=== PATIENT | female | born 1935 | race Caucasian/White ===

== ENCOUNTER 2019-07-05 17:32 | Inpatient (IN) | payer MEDICARE, MEDICAID ==
[~2019-07-05] VITALS: Ht 157.5 cm; Wt 55.3 kg
[2019-07-05 17:39] VITALS: BP 158/60
--- NOTE | 2019-07-05 17:39 | NUR ---
ED Nurse Note: PT CAME IN DUE TO ELEVATED BLOOD PRESSURE TODAY AND STATES LEFT EYE BLURING OF VISION AND THAT SHE SEES HALO SPOTS 2 DAYS AGO. DENIES N/V. AAO X4, AMBULATES WITH ASSISTANCE. DAUGHTER AT THE BED SIDE.
--- NOTE | 2019-07-05 18:11 | Diagnostic Imaging Report ---
Indication: Headache Technique: Continuous helical CT scanning of the head was performed utilizing automated exposure control without intravenous contrast material. Axial and coronal reconstructions were obtained. Comparison: None CT dose: Total DLP 1363.6 mGycm; CTDI vol 62.7 mGy Findings: There is no acute intracranial hemorrhage, mass effect or cortical edema. The ventricles, cisterns and sulci are prominent consistent with atrophy. Periventricular hypoattenuation is seen, a nonspecific finding. Visualized mastoid air cells and paranasal sinuses are unremarkable. No focal lesions of the bony calvarium or soft tissues of the scalp are seen. Impression: No evidence of acute intracranial hemorrhage, mass effect or cortical edema. MRI may be obtained for more sensitive evaluation as clinically indicated. Atrophy and nonspecific periventricular hypoattenuation suggestive of chronic ischemic microvascular changes. The CT scanner at [facility] is accredited by the [employer] and the scans are performed using protocols designed to limit radiation exposure to as low as reasonably achievable to attain images of sufficient resolution adequate for diagnostic evaluation.
--- NOTE | 2019-07-05 18:14 | Emergency Room Report ---
History of Present Illness General Chief Complaint: General Complaint Source: Patient Present Illness HPI Disclaimer: Please note that this report is being documented using [employer] technology. This can lead to erroneous entry secondary to incorrect interpretation by the dictating instrument. HPI: 83-year-old primarily [place]er-speaking female presents for evaluation of vision changes. Daughter is present to translate and provide additional information. States that over the past 2 days her mother has lost vision almost completely in the right eye aside from slight black floating dots. There is no history of head trauma. She has a remote history of stroke many years ago without residual deficits and is being treated for hypertension and hyperlipidemia. She is otherwise been in her usual state of health. She is sent over for evaluation by her home health aide who found her systolic pressures greater than 200 today and when she learned about the vision changes, headaches and ringing in the ear prompted urgent medical evaluation. Patient noted some mild headaches, pressure behind the right eye and a ringing in the right ear which have now resolved. Her vision has not returned. Denied any chest pain, palpitations, shortness of breath, fever, chills, vomiting or diarrhea or other changes in her health. Denies vertigo or lightheadedness. She was complaining of some tingling over the left izaguirre but denied any changes in strength and still has grossly intact sensation just notes slight numbness/ tingling. PMH: Hypertension, hyperlipidemia, prior stroke without residual deficits PSH: Abdominal tumor resection Allergies: None reported Social Hx: None reported Allergies: Coded Allergies: No Known Allergies (Verified , 11/27/09) Nursing Documentation-PMH Hx Hypertension: Yes - high cholesterol Review of Systems All Other Systems: negative except mentioned in HPI Physical Exam Vital Signs Date Time Temp Pulse Resp B/P (MAP) Pulse Ox O2 Delivery O2 Flow Rate FiO2 07/05/19 17:29 98.2 62 16 170/70 (103) 98 Room Air General: Awake and alert, no acute distress HEENT: NC/AT. EOMI. pupils are equal approximately 3 mm.. Complete loss of vision in the right eye. Loss of accommodation in the right eye. Left eye has good reactivity to light and consensual accommodation. Facial expressions are symmetrical. No facial droop. Cardiovascular: RRR. S1 and S2 normal. No murmur appreciated Resp: Normal work of breathing. No cough, wheezing or crackles appreciated Abdomen: Abdomen is soft, nondistended. Nontender Skin: Intact. No abrasions, laceration or rash over the exposed skin MSK: Normal tone and bulk. Moving all extremities. No obvious deformity. There is no drift in the upper or lower extremities bilaterally. Neuro: Awake and alert. Mentating appropriately. Facial expression symmetrical. Sensation to light touch is intact over the upper and lower extremities. Difficult to assess for dysarthria given the language barrier. No apparent slurred speech. Patient appears to have full comprehension through rn acute care. Medical Decision Making Diagnostic Impression: Primary Impression: Hypertensive urgency Additional Impressions: Vision loss Paresthesia of left leg ER Course This 83-year-old female presenting for evaluation of elevated blood pressures, 2 days of right vision loss, subjective paresthesias in lower extremity, previous headaches and ringing in the ears which have now resolved. The patient 's on examination aside from the vision loss is neurologically intact. She has gross sensation, full motor and strength. Appears to comprehend fully and is no complete complaints at this time. No longer complaining of headache, ringing or ears, blood pressure is improved prior to arrival. Differential includes was not limited to CVA, hypertensive urgency, hypertensive emergency, retinal detachment, vitreous detachment, CRAO to name a few. Will obtain a CT scan of the head, broad labs. She will require admission Laboratory Tests Test 07/05/19 18:20 07/05/19 20:35 White Blood Count 8.0 K/UL (4.8-10.8) Red Blood Count 3.72 M/UL (4.20-5.40) L Hemoglobin 11.2 G/DL (12.0-16.0) L Hematocrit 33.6 % (37.0-47.0) L Mean Corpuscular Volume 90 FL (80-99) Mean Corpuscular Hemoglobin 30.0 PG (27.0-31.0) Mean Corpuscular Hemoglobin Concent 33.2 G/DL (32.0-36.0) Red Cell Distribution Width 10.3 % (11.6-14.8) L Platelet Count 208 K/UL (150-450) Mean Platelet Volume 5.6 FL (6.5-10.1) L Neutrophils (%) (Auto) 67.8 % (45.0-75.0) Lymphocytes (%) (Auto) 23.3 % (20.0-45.0) Monocytes (%) (Auto) 5.4 % (1.0-10.0) Eosinophils (%) (Auto) 1.3 % (0.0-3.0) Basophils (%) (Auto) 2.2 % (0.0-2.0) H Prothrombin Time 10.2 SEC (9.30-11.50) Prothrombin Time INR 1.0 (0.9-1.1) PTT 25 SEC (23-33) Sodium Level 147 MMOL/L (136-145) H Potassium Level 4.0 MMOL/L (3.5-5.1) Chloride Level 109 MMOL/L (98-107) H Carbon Dioxide Level 29 MMOL/L (21-32) Anion Gap 10 mmol/L (5-15) Blood Urea Nitrogen 21 mg/dL (7-18) H Creatinine 1.0 MG/DL (0.55-1.30) Estimate Glomerular Filtration Rate mL/min (>60) Glucose Level 99 MG/DL (74-106) Calcium Level 8.9 MG/DL (8.5-10.1) Total Bilirubin 0.3 MG/DL (0.2-1.0) Aspartate Amino Transferase (AST) 20 U/L (15-37) Alanine Aminotransferase (ALT) 28 U/L (12-78) Alkaline Phosphatase 80 U/L (46-116) Troponin I 0.000 ng/mL (0.000-0.056) Total Protein 7.1 G/DL (6.4-8.2) Albumin 4.0 G/DL (3.4-5.0) Globulin 3.1 g/dL Albumin/Globulin Ratio 1.3 (1.0-2.7) Triglycerides Level 113 MG/DL (30-150) Cholesterol Level 157 MG/DL (< 200) LDL Cholesterol 81 mg/dL (<100) HDL Cholesterol 53 MG/DL (40-60) Cholesterol/HDL Ratio 3.0 (3.3-4.4) L Urine Color Pale yellow Urine Appearance Clear Urine pH 6 (4.5-8.0) Urine Specific [place] 1.005 (1.005-1.035) Urine Protein Negative (NEGATIVE) Urine Glucose (UA) Negative (NEGATIVE) Urine Ketones Negative (NEGATIVE) Urine Blood Negative (NEGATIVE) Urine Nitrite Negative (NEGATIVE) Urine Bilirubin Negative (NEGATIVE) Urine Urobilinogen Normal MG/DL (0.0-1.0) Urine Leukocyte Esterase Negative (NEGATIVE) EKG Diagnostic Results EKG Time: 18:01 Rate: normal Rhythm: NSR ST Segments: no acute changes Other Impression Sinus rhythm, normal axis, normal intervals, no ST segment changes. Q waves in V1 and V2 Rhythm Strip Diag. Results Rhythm Strip Time: 18:01 EP Interpretation: yes Rate: 60s Rhythm: NSR, no PVC's, no ectopy CT/MRI/US Diagnostic Results CT/MRI/US Diagnostic Results : Impression Preliminary Findings Only See Final Report For Complete Findings CT HEAD Without Contrast: No acute infarct, hemorrhage, mass or edema. Chronic small vessel ischemic disease and senescent changes. No acute osseous abnormality. Minimal mucosal thickening in the paranasal sinuses. Radiologist: Gaetano Malik MD Study ready at 18:06 and initial results transmitted at 18:10 Reevaluation Time: 21:00 Last Vital Signs Date Time Temp Pulse Resp B/P (MAP) Pulse Ox O2 Delivery O2 Flow Rate FiO2 07/05/19 17:29 98.2 62 16 170/70 (103) 98 Room Air Reevaluation Impression CT scan unremarkable for obvious bleed, mass or signs of acute infarct. Patient condition remains unchanged. Labs are largely within normal limits. Patient's condition is unchanged. At this point I believe she is there is a vitreous detachment, retinal detachment or other ocular pathology and require further evaluation though likely further imaging as well. Be admitted for further work-up and management of hypertension and vision loss. Admit to telemetry. Disposition: ADMITTED INPATIENT Condition: Serious Chuy Lance MD Jul 05, 2019 18:14
--- NOTE | 2019-07-05 18:15 | NUR ---
ED Nurse Note: COLLECTED BLOOD THEN SENT.
[2019-07-05 18:47] LABS: BASOPHILS % (AUTO) 2.2 % (0.0-2.0); EOSINOPHILS % (AUTO) 1.3 % (0.0-3.0); HEMATOCRIT 33.6 % (37.0-47.0); HEMOGLOBIN 11.2 G/DL (12.0-16.0); LYMPHOCYTES % (AUTO) 23.3 % (20.0-45.0); MEAN CORPUSCULAR VOLUME 90 FL (80-99); MONOCYTES % (AUTO) 5.4 % (1.0-10.0); NEUTROPHILS % (AUTO) 67.8 % (45.0-75.0); PLATELET COUNT 208 K/UL (150-450); RED BLOOD COUNT 3.72 M/UL (4.20-5.40); RED CELL DISTRIBUTION WIDTH 10.3 % (11.6-14.8)
[2019-07-05 18:59] LABS: ANION GAP 10 mmol/L (5-15); BLOOD UREA NITROGEN 21 mg/dL (7-18); CALCIUM 8.9 MG/DL (8.5-10.1); CARBON DIOXIDE 29 MMOL/L (21-32); CHLORIDE 109 MMOL/L (98-107); SODIUM 147 MMOL/L (136-145)
[2019-07-05 19:04] LABS: ALANINE AMINOTRANSFERASE 28 U/L (12-78); ALBUMIN/GLOBULIN RATIO 1.3 (1.0-2.7); ALKALINE PHOSPHATASE 80 U/L (46-116); ASPARTATE AMINO TRANSFERASE 20 U/L (15-37); BILIRUBIN,TOTAL 0.3 MG/DL (0.2-1.0); CHOLESTEROL 157 MG/DL (< 200); HDL CHOLESTEROL 53 MG/DL (40-60); TRIGLYCERIDES 113 MG/DL (30-150)
[2019-07-05] MEDS ORDERED: EPINEPHrine 1mg/1ml Amp IM ONE (19:30)
--- NOTE | 2019-07-05 19:31 | NUR ---
ED Nurse Note: ERMD at bedside.
[2019-07-05 19:40] VITALS: BP 153/65
--- NOTE | 2019-07-05 20:01 | NUR ---
HAND-OFF: Report given to DESTINEY HERRERA.
[2019-07-05] MEDS ORDERED: VITAMIN D32000 UNI3 PO (20:46)
[2019-07-05] MEDS ORDERED: LORATADINE10 M2 PO (20:46)
[2019-07-05] MEDS ORDERED: CRESTOR40 MG ORAL (20:46)
[2019-07-05] MEDS ORDERED: BENICAR40 MG ORAL (20:46)
[2019-07-05] MEDS ORDERED: OYSTER SHELL C500 MG PO (20:46)
--- NOTE | 2019-07-05 20:48 | NUR ---
ED Nurse Note: Report given to JAVIER Babb in tele.
--- NOTE | 2019-07-05 21:15 | NUR ---
ED Nurse Note: Patient transferred via gurney accompanied by 1 RN and 1 nuclear fuel enrichment technician in stable condition with ACLS protocol.
[2019-07-05 21:18] LABS: APPEARANCE,URINE CLEAR; BILIRUBIN, URINE NEGATIVE (NEGATIVE); COLOR,URINE PALE YELLOW; GLUCOSE, URINE (UA) NEGATIVE (NEGATIVE); KETONES,URINE NEGATIVE (NEGATIVE); LEUKOCYTE ESTERASE ,URINE NEGATIVE (NEGATIVE); NITRITE,URINE NEGATIVE (NEGATIVE); PH,URINE 6 (4.5-8.0); PROTEIN,URINE NEGATIVE (NEGATIVE); UROBILINOGEN,URINE NORMAL MG/DL (0.0-1.0)
[2019-07-05 22:00] VITALS: BP 140/63
--- NOTE | 2019-07-05 22:00 | NUR ---
NURSE NOTES: Pt arrived via ER [place]. Got report from Lorraine HERRERA. Initial assessment done. Pt states that came to hospital because she was having high blood pressures and having blurry vision and seeing spots. Pt is [place] speaking is fully oriented. Denies any pain. Denies any n/v. Pt is here for hypertension urgency. VSS BP:140/63 HR:56 T:97.5 R:16 O2:96% on room air. No skin issues noted. Pt uses walker to ambulate. artisan plasterer placed on pt running Sinus Bradycardia on the monitor. Belongings list verified. Pt resting in bed comfortably. Bed in low and locked position, call light within reach, bedside table within reach. Continue to monitor. Orders given and placed by Dr. Herbert.
[2019-07-06] VITALS: BP 121/60
[2019-07-06 04:00] VITALS: BP 137/69
--- NOTE | 2019-07-06 07:20 | NUR ---
HAND-OFF: Report given to Jenna HERRERA.
--- NOTE | 2019-07-06 07:21 | NUR ---
NURSE NOTES: Report received from JAVIER Bhatt. Pt. sleeping comfortably. In RA. No S/S of distress noted. Room made free of clutter. Whiteboard updated. Bed on lowest position, side rails upx2, brakes engaged, alarm on. Call light within easy reach.
[2019-07-06 08:00] VITALS: BP 156/73
[2019-07-06] MEDS ORDERED: Metoprolol Succinate XL 50mg tab ORAL SCH (09:00)
[2019-07-06] MEDS: Tums 500mg ORAL SCH (10:02)
[2019-07-06] MEDS: Vitamin D 1000 IU Tab ORAL SCH (10:02)
[2019-07-06] MEDS ORDERED: Lisinopril 20mg tab ORAL SCH (10:30)
[2019-07-06 12:00] VITALS: BP 142/63
--- NOTE | 2019-07-06 14:33 | NUR ---
CASE MANAGEMENT: 83 Y/O FEMALE FROM HOME BIBLynsey CC: GENERAL COMPLAINT, ELEVATED BP, LEFT EYE VISION PROBLEM. SI: HTN URGENCY 98.2 62 16 170/70 98% RA NA 147 CL-109 BUN 21 HBG 11.1 HCT 33.6 IS: CLONIODINE 0.1 MG EKG NEURO CHECKS CT HEAD ACCUCHECK ASPIRATION PREC. FALL PREC. ~~~TELEMETRY 2 EAST.
[2019-07-06 16:00] VITALS: BP 135/70
--- NOTE | 2019-07-06 16:30 | History and Physical Report ---
DATE OF ADMISSION: 07/05/2019 HISTORY OF PRESENT ILLNESS: This is elderly female came with hypertensive urgency, chest pain, abdominal pain, vision loss, paresthesia of leg. Her blood pressure was very high. The patient speaks [place]an, but she communicates somehow. PAST MEDICAL HISTORY: Significant for hypertension, osteoporosis, arthritis, and hyperlipidemia. MEDICATIONS: She is taking vitamin D, Crestor, Benicar, vitamin D. ALLERGIES: NKA. FAMILY HISTORY: Noncontributory. SOCIAL HISTORY: The patient lives at home with the family. PHYSICAL EXAMINATION: VITAL SIGNS: When she came, blood pressure was over 200, currently blood pressure 156/73, pulse 48, respirations 19, temperature 97.5. HEENT: NAD. CHEST: Bilaterally clear. CARDIOVASCULAR: Regular rhythm. ABDOMEN: Soft. Positive bowel sounds. Nontender. EXTREMITIES: No edema. GENITOURINARY: Deferred. LABORATORY DATA: White counts are 8, hemoglobin 11, hematocrit 33, platelets are 208. Chemistry panel, BUN 21, creatinine 1. Troponins are negative. Sodium 147. Her urine test is negative. ASSESSMENT: 1. Hypertensive crisis. 2. Vision loss. 3. Hyperlipidemia. 4. Abdominal pain. 5. Severe bradycardia. PLAN: We will discontinue metoprolol. Add JANINA inhibitors. Continue rest of the medication and monitor blood pressure. Consider Cardiology consult. Oscar Herbert M.D. DR: MARY ELLEN JOB#: [id number] CC:
[2019-07-06] MEDS ORDERED: HydrALAZINE 25mg tab ORAL SCH (16:45)
--- NOTE | 2019-07-06 18:14 | Cardiac Electrophysiology PN ---
Subjective Subjective [id number] Objective Last 24 Hour Vital Signs Date Time Temp Pulse Resp B/P (MAP) Pulse Ox O2 Delivery O2 Flow Rate FiO2 07/06/19 16:00 55 07/06/19 12:00 48 07/06/19 12:00 98.1 52 19 142/63 (89) 100 07/06/19 10:03 156/73 07/06/19 09:00 Room Air 07/06/19 08:00 97.5 48 19 156/73 (100) 99 07/06/19 08:00 40 07/06/19 04:00 44 07/06/19 04:00 97.0 55 16 137/69 (91) 97 07/06/19 00:38 Room Air 07/06/19 00:01 Room Air 07/06/19 00:00 97.0 53 16 121/60 (80) 98 07/06/19 00:00 47 07/05/19 22:00 53 07/05/19 22:00 97.5 56 16 140/63 (88) 96 07/05/19 21:15 98.2 65 17 145/75 99 Room Air 07/05/19 19:40 98.6 56 19 153/65 99 Room Air Laboratory Tests Test 07/05/19 18:20 07/05/19 20:35 White Blood Count 8.0 K/UL (4.8-10.8) Red Blood Count 3.72 M/UL (4.20-5.40) L Hemoglobin 11.2 G/DL (12.0-16.0) L Hematocrit 33.6 % (37.0-47.0) L Mean Corpuscular Volume 90 FL (80-99) Mean Corpuscular Hemoglobin 30.0 PG (27.0-31.0) Mean Corpuscular Hemoglobin Concent 33.2 G/DL (32.0-36.0) Red Cell Distribution Width 10.3 % (11.6-14.8) L Platelet Count 208 K/UL (150-450) Mean Platelet Volume 5.6 FL (6.5-10.1) L Neutrophils (%) (Auto) 67.8 % (45.0-75.0) Lymphocytes (%) (Auto) 23.3 % (20.0-45.0) Monocytes (%) (Auto) 5.4 % (1.0-10.0) Eosinophils (%) (Auto) 1.3 % (0.0-3.0) Basophils (%) (Auto) 2.2 % (0.0-2.0) H Prothrombin Time 10.2 SEC (9.30-11.50) Prothromb Time International Ratio 1.0 (0.9-1.1) Activated Partial Thromboplast Time 25 SEC (23-33) Sodium Level 147 MMOL/L (136-145) H Potassium Level 4.0 MMOL/L (3.5-5.1) Chloride Level 109 MMOL/L (98-107) H Carbon Dioxide Level 29 MMOL/L (21-32) Anion Gap 10 mmol/L (5-15) Blood Urea Nitrogen 21 mg/dL (7-18) H Creatinine 1.0 MG/DL (0.55-1.30) Estimat Glomerular Filtration Rate mL/min (>60) Glucose Level 99 MG/DL (74-106) Calcium Level 8.9 MG/DL (8.5-10.1) Total Bilirubin 0.3 MG/DL (0.2-1.0) Aspartate Amino Transf (AST/SGOT) 20 U/L (15-37) Alanine Aminotransferase (ALT/SGPT) 28 U/L (12-78) Alkaline Phosphatase 80 U/L (46-116) Troponin I 0.000 ng/mL (0.000-0.056) Total Protein 7.1 G/DL (6.4-8.2) Albumin 4.0 G/DL (3.4-5.0) Globulin 3.1 g/dL Albumin/Globulin Ratio 1.3 (1.0-2.7) Triglycerides Level 113 MG/DL (30-150) Cholesterol Level 157 MG/DL (< 200) LDL Cholesterol 81 mg/dL (<100) HDL Cholesterol 53 MG/DL (40-60) Cholesterol/HDL Ratio 3.0 (3.3-4.4) L Urine Color Pale yellow Urine Appearance Clear Urine pH 6 (4.5-8.0) Urine Specific [place] 1.005 (1.005-1.035) Urine Protein Negative (NEGATIVE) Urine Glucose (UA) Negative (NEGATIVE) Urine Ketones Negative (NEGATIVE) Urine Blood Negative (NEGATIVE) Urine Nitrite Negative (NEGATIVE) Urine Bilirubin Negative (NEGATIVE) Urine Urobilinogen Normal MG/DL (0.0-1.0) Urine Leukocyte Esterase Negative (NEGATIVE) Compa Bains MD Jul 06, 2019 18:14
[2019-07-06] MEDS ORDERED: Omnipaque-300 100ml vial INJ ONE (18:15)
[2019-07-06] MEDS: HydrALAZINE 50mg tab ORAL SCH (18:35)
--- NOTE | 2019-07-06 19:25 | NUR ---
NURSE NOTES: Got report from Barak HERRERA. Pt in stable condition. Denies any pain. No s/s of distress or discomfort noted. Pt resting in bed comfortably. Bed in low and locked position, call light within reach, bedside table within reach. Continue to monitor.
[2019-07-06 20:00] VITALS: BP 151/76
[2019-07-06] MEDS: Atorvastatin 80mg tab ORAL SCH (21:26)
[2019-07-07] VITALS: BP 116/61
--- NOTE | 2019-07-07 00:15 | Consultation ---
DATE OF CONSULTATION: 07/06/2019 CARDIOLOGY CONSULTATION CONSULTING PHYSICIAN: Compa Bains M.D. REFERRING PHYSICIAN: David Herbert M.D. REASON FOR CONSULTATION: Uncontrolled hypertension and abdominal pain. HISTORY OF PRESENT ILLNESS: The patient is an 83-year-old [place]i-speaking lady who presented to the emergency room for vision changes as well as uncontrolled hypertension. As per daughter, she has loss of vision almost completely in the right eye in addition to slight black floating dots. There is no history of head trauma and has a remote history of stroke many years ago with residual deficit. The patient had noticed systolic blood pressure more than 200. At the time of my evaluation, the patient denies any chest pain or shortness of breath. REVIEW OF SYSTEMS: Negative other than what was mentioned in the history of present illness. PAST MEDICAL HISTORY: As mentioned above. PAST SURGICAL HISTORY: Include abdominal tumor resection that was reportedly benign. MEDICATIONS: Per reconciliation. ALLERGIES: She has no known drug allergies. PHYSICAL EXAMINATION: VITAL SIGNS: Blood pressure 142/63, pulse is 55, respirations 18, and temperature 98.1. HEAD AND NECK: No JVD. LUNGS: Clear. CARDIOVASCULAR: Regular S1 and S2 with no gallop or murmur. ABDOMEN: Pulsating aorta in the abdomen and a scar of previous surgery. EXTREMITIES: No pitting edema. LABORATORY AND DIAGNOSTIC DATA: Her EKG shows sinus rhythm, rate of [address]-T wave abnormalities. Her labs show white count of 8, hemoglobin 11.2, hematocrit 33.6, and platelet count 208,000. Sodium is 147, potassium , BUN of 21, and creatinine of 1. Troponin is negative. ASSESSMENT AND PLAN: 1. Accelerated hypertension. Blood pressure is better controlled. Increase hydralazine to 50 mg b.i.d. The patient is already on Avapro 300 mg daily and p.r.n. clonidine. 2. Abdominal pain. The patient is an 83-year-old with high a pulsating abdominal mass. We will order a CT angio of the abdomen and chest to rule out aneurysm and completely rule out AR protocol. We will get the echocardiogram for further evaluation. 3. Hypernatremia and azotemia, likely due to dehydration. 4. History of abdominal mass, status post resection. 5. History of CVA. Thank you very much for allowing me to participate in the care of this patient. Please do not hesitate to contact me for any questions regarding my evaluation. Sincerely, Compa Bains M.D. DR: TORIE JOB#: [id number] CC:
[2019-07-07 04:00] VITALS: BP_SYST 120; BP_SYST 131; BP_DIAS 67
--- NOTE | 2019-07-07 05:00 | Consultation ---
DATE OF CONSULTATION: 07/05/2019 NEUROLOGY CONSULTATION CONSULTING PHYSICIAN: Kp Velasco M.D. CHIEF COMPLAINT: This is an 83-year-old right-handed woman, who was admitted with a blood pressure over 200. The patient was admitted with a chief complaint of elevated blood pressure, chest pain, abdominal pain, vision loss, and paresthesias of the leg. I was asked to see the patient because of her right eye vision loss. The patient has a 20-year history of hypertension and prediabetes. Recently, discovered to have elevated cholesterol. She did have a cataract surgery in January 2009. She also had a "stroke" and was hospitalized in [place] in her 50s. However, she cannot remember the details of it. Before one week ago, the patient had myopia and wore glasses. She began to have small dots in the right eye, which got bigger at the end of May. There is no real headache or eye pain associated with it. However, she has had shoulder pain for many years. The patient did not see doctor and she denies any diplopia. The patient is a nonsmoker and does not drink. The patient lives with her family, was brought to the emergency room on 07/05/2019. Her blood pressure was over 200 apparently, but when she saw Dr. Herbert her blood pressure was in the 150. She was treated. She was anemic on admission with normal platelets and normal white count. Urinalysis was basically normal. Chemistry examination, serum sodium is 147 and BUN was 21. Her cholesterol and triglycerides were normal. Sugar was 99. The patient had an EKG, which revealed a septal infarct, age undetermined although there is no history of coronary artery disease. The patient had a CT scan of the brain without contrast, which revealed evidence of chronic ischemic microvascular changes and cerebral atrophy. The patient did not have any ophthalmologic consultation at this time. She did see car chaser today. There is no formal report on the chart. The patient at this point is on hydralazine, clonidine, Lipitor 80 mg, lisinopril 20 mg, loratadine 10 mg, and metoprolol 25 mg twice a day, which was changed. The CT of the chest, abdomen, and pelvis were deferred now. However, 2D echocardiogram, which was ordered today of note I did not see it on the chart. The patient does not really have any history of headaches. We will obtain a brain scan. The patient cannot see peripherally out of the right eye. She has no memory loss, seizures, or black outs. She denies any tremors or shakes. 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 She has no dysarthria or dysphagia. She has hearing loss, probably bilaterally for the last year and some tinnitus. She has some incontinence and urinary urgency. PAST MEDICAL HISTORY/PAST MEDICAL ILLNESS: 1. Osteoporosis, see above. 2. Hypertension, see above. 3. Hyperlipidemia, see above. 4. Prediabetes. 5. Benign tumor syndrome and obstruction MEDICATIONS: As an outpatient, she is on loratadine, calcium carbonate, Crestor, and Benicar. SOCIAL HISTORY: She is a with 4 children in good health. FAMILY HISTORY: Her father of complications of surgery from abdominal hemorrhage. Mother of old age. She had a brother who , reason unknown. REVIEW OF SYSTEMS: Appetite is good. She is 5 feet 2 inches. Weight 164 pounds. PHYSICAL EXAMINATION: GENERAL: She is a well-developed, well-nourished woman lying in bed, in no acute distress. VITAL SIGNS: Pulse is 56 and regular, respiration 19, blood pressure is 153/65, and temperature is 98.6 degrees. HEENT: Examination of head, ears, eyes, nose, mouth, and throat reveals no temporal artery tenderness and temporal pulses are +2. The rest of the exam is pretty much normal. NECK: There is minimal posterior cervical tenderness. Supple. Carotids are +2. There are no bruits. LUNGS: Clear to auscultation. CARDIOVASCULAR: PMI was not felt. JVP flat. The patient had normal S1. S2 is physiologically split. I could not hear an S3, S4, murmur, or rubs. ABDOMEN: Obese. Bowel sounds intact. No tenderness, masses, or organomegaly. BACK: There is no tenderness to percussion or muscle spasm. EXTREMITIES: Lower extremities have degenerative joint disease. NEUROLOGIC EXAMINATION: MENTAL STATUS: The patient answers questions appropriately and neurologic examination was normal according to her daughter. She was alert, awake, and she could follow commands. CRANIAL NERVE EXAMINATION: CRANIAL NERVE II: Visual dean were difficult to evaluate in O.D., but there is some partially intact visual field temporary, possibly medially in the right eye. Visual dean in the left is normal. She had afferent pupillary defect in right. Fundi were not visualized. Visual acuity not tested. CRANIAL NERVES III, IV, AND VII: Extraocular motility was full. Left pupil is 7 mm. Right pupil is 5 mm. Both light reactive, left pupil greater than right. CRANIAL NERVE V: There is questionable decreased sensation in the first and second divisions of the fifth cranial nerve on the right. Pterygoid strength is 5/5. CRANIAL NERVE VII: Facial strength is 5/5 bilaterally. CRANIAL NERVE VIII: Auditory acuity was decreased to low normal voice bilaterally, probably worse on left. CRANIAL NERVES IX AND X: Gag is intact bilaterally. CRANIAL NERVE XI: Sternocleidomastoid strength is 5/5. CRANIAL NERVE XII: Tongue protrudes in the midline without fasciculations or atrophy. MUSCLE EXAMINATION: Muscle bulk and tone are normal. Strength is 5/5 proximally and distally without pronator drift. Reflexes are +2 in the upper extremities, +1-1/2 to 2 at the knees, 0 at the ankles with downgoing toes when tested for Babinski response. COORDINATION: [id number]-ln-[id number] and rapid alternating movements were intact. Foom-mv-lnhi using the left leg on the right knee was intact. She could not put her right heel on the left knee because of pain. GAIT AND STATION: Not tested. SENSORY EXAMINATION: Proprioception is intact. Pinprick and fine touch were normal. 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 The differential diagnosis is due to vascular disease, temporal arteritis, glaucoma, and paraneoplastic syndromes in the right leg. Her blood pressure is way out of control and she has some hyperlipidemia, which is probably the cause. White matter is noted involving the left eye. The patient is anemic, which could suggest temporal arteritis. However, there is no increasing headache. Polymyalgia rheumatica is unlikely given the history. PLAN: 1. C-reactive protein and sedimentation rate stat. 2. Ophthalmologic consultation stat. 3. MRI scan of the brain. 4. MRA of the neck. 5. Control the patient's blood pressure. 6. Hold off on steroids at this time. 7. The patient is now consistent to have amaurosis fugax. Thank you for this interesting case. Kp MD Rod DR: Arpita JOB#: [id number] CC:
--- NOTE | 2019-07-07 07:10 | NUR ---
HAND-OFF: Report given to Barak HERRERA.
[2019-07-07 08:00] VITALS: BP 139/65
[2019-07-07] MEDS: Tums 500mg ORAL SCH (09:00)
[2019-07-07] MEDS: HydrALAZINE 50mg tab ORAL SCH ×2 (10:00→18:00)
[2019-07-07] MEDS: Vitamin D 1000 IU Tab ORAL SCH (10:01)
[2019-07-07 12:00] VITALS: BP 139/67
--- NOTE | 2019-07-07 15:29 | Cardiac Electrophysiology PN ---
Assessment/Plan Assessment/Plan 1. Accelerated hypertension. Blood pressure is better controlled on hydralazin 50 mg b.i.d. and Avapro 300 mg daily and p.r.n. clonidine. 2. Abdominal pain. The patient is an 83-year-old with high a pulsating abdominal mass. CT angio of the abdomen and chest to rule out aneurysm done. Results pending 3. Hypernatremia and azotemia, likely due to dehydration. 4. History of abdominal mass, status post resection. 5. History of CVA. Subjective Subjective Feeling better. Just had CT abdomen/chest and pelvis. Daughter at bedside Objective Last 24 Hour Vital Signs Date Time Temp Pulse Resp B/P (MAP) Pulse Ox O2 Delivery O2 Flow Rate FiO2 07/07/19 14:00 65 07/07/19 12:00 98.1 65 18 139/67 (91) 98 07/07/19 10:00 139/65 07/07/19 10:00 139/65 07/07/19 08:00 96.1 69 18 139/65 (89) 100 07/07/19 08:00 79 07/07/19 04:00 48 07/07/19 04:00 98.2 59 18 120/67 (84) 100 07/07/19 00:00 98.4 55 18 116/61 (79) 100 07/07/19 00:00 49 07/06/19 21:00 Room Air 07/06/19 20:00 98.4 66 19 151/76 (101) 96 07/06/19 20:00 63 07/06/19 18:35 135/70 07/06/19 16:00 55 07/06/19 16:00 98.2 51 18 135/70 (91) 98 Neurologic: motor weakness Intake and Output 07/06/19 07/07/19 19:00 07:00 Intake Total 480 ml Balance 480 ml Intake Oral 480 ml # Voids 3 2 Laboratory Tests Test 07/06/19 21:45 07/07/19 05:20 Erythrocyte Sedimentation Rate 17 MM/HR (0-30) C-Reactive Protein, Quantitative < 0.4 mg/dL (0.00-0.90) Pro-B-Type Natriuretic Peptide 316 pg/mL (0-125) H Objective HEAD AND NECK: No JVD. LUNGS: Clear. CARDIOVASCULAR: Regular S1 and S2 with no gallop or murmur. ABDOMEN: Pulsating aorta in the abdomen and a scar of previous surgery. Compa Bains MD Jul 07, 2019 15:29
[2019-07-07 16:00] VITALS: BP 112/64
--- NOTE | 2019-07-07 16:11 | Diagnostic Imaging Report ---
CLINICAL INDICATION:Uncontrolled hypertension, abdominal pain, pulsating abdominal mass TECHNIQUE: IV administration nonionic contrast. Arterial phase spiral acquisitions obtained through the chest, abdomen, and pelvis. Multiplanar and 3-D reconstructions were generated. Total dose length product 861 mGycm. CTDIvol(s) 50, 10, 11 mGy. Radiation dose was minimized using automated exposure control COMPARISON: FINDINGS Vascular: There is no evidence of thoracic aortic aneurysm or dissection. Normal caliber and branching anatomy of the great neck vessels. There is some atherosclerotic plaquing of the descending thoracic aorta, but no significant stenosis is evident. No evidence of abdominal aortic aneurysm or dissection. Normal anatomy and caliber of the abdominal visceral vessels. The inferior mesenteric artery is patent. The common and external iliac arteries are patent, nonstenotic. Exam protocols not tailored for exclusion of pulmonary embolus. Nonetheless, the pulmonary arteries are fairly well opacified and there are no filling defects or other findings to suggest acute pulmonary embolus demonstrated. There is a dilated left ovarian vein and small left paraovarian varicosities Chest: The lungs demonstrate slight prominence of the interstitial septa and very slight groundglass opacity diffusely. No focal dense consolidation. No effusions. Small subpleural opacities are seen in the bilateral upper lobes, likely postinflammatory in nature. There is a bilobed 9 x 5 mm opacity in the left lower lobe, image 70 series 4. No other nodules or masses demonstrated. The heart is upper limits normal in size. There is suggestion of left ventricular muscular hypertrophy. No mediastinal or hilar mass or adenopathy. No axillary or chest wall mass or adenopathy. The thyroid demonstrates a subcentimeter nodule in the left lower pole. Abdomen pelvis: The stomach is distended with ingested material. No definite downstream obstructive lesion is demonstrated. No small bowel distention. No free or loculated intraperitoneal gas or fluid. There is a moderate amount of retained colonic stool. There is no evidence of diverticulosis or diverticulitis. The appendix is normal. The liver, gallbladder, bile ducts, pancreas, spleen, adrenals, kidneys are all unremarkable. Uterus and adnexal structures appear unremarkable. No pelvic mass or adenopathy. The bones demonstrate severe degenerative changes of the right hip. There are mild degenerative changes of the thoracic and lumbar spine. There is a compression fracture deformity of the T9 vertebral body. IMPRESSION: No evidence of thoracic or abdominal aortic aneurysm or dissection or other acute thoracic or abdominal vascular pathology. Dilated left ovarian vein and small paraovarian varicosities, presumably indicative of ovarian venous insufficiency. This can cause pelvic congestion syndrome. Correlate with clinical findings Equivocal mild interstitial pulmonary septal thickening and slight diffuse groundglass opacity, significance uncertain but could indicate mild pulmonary edema Evidence of left ventricular cardiac muscular hypertrophy 9 x 5 mm left lower lobe nodule. Probably an area of scarring, but 3 month follow-up CT should be considered per Fleischner society recommendations Subcentimeter left lower pole thyroid nodule. No further follow-up necessary No acute abdominal process Moderate gastric distention with ingested material, significance doubtful is no downstream obstructive lesion is visualized. Moderate retained colonic stool. T9 vertebral body compression fracture deformity, age-indeterminate. Consider MRI if considered clinically relevant Other findings as noted, including severe right hip degeneration, degenerative spondylosis The CT scanner at [facility] is accredited by the [employer] and the scans are performed using protocols designed to limit radiation exposure to as low as reasonably achievable to attain images of sufficient resolution adequate for diagnostic evaluation.
--- NOTE | 2019-07-07 17:47 | NUR ---
NURSE NOTES: Pt. IV site concern communicated with MD. No new orders at this time.
[2019-07-07] MEDS: Milk of Magnesia 30ml Ud ORAL PRN (18:32)
--- NOTE | 2019-07-07 19:00 | NUR ---
NURSE NOTES: Pt's daughter claimed mom spilled on the floor. Med to be administered by machinist 2nd shift.
[2019-07-07 20:00] VITALS: BP 128/62
--- NOTE | 2019-07-07 20:04 | NUR ---
NURSE NOTES: Dr. Couch to see pt. on 07/08/19 afternoon. Pt. made aware.
--- NOTE | 2019-07-07 20:08 | NUR ---
HAND-OFF: Report given to JAVIER To. Plan of care endorsed.
--- NOTE | 2019-07-07 20:10 | NUR ---
NURSE NOTES: Report received from JAVIER Cancino. Pt. awake and alert, daughter at bedside. on RA. No S/S of distress noted. Bed in lowest position, side rails upx2, locked, alarm on. Call light within easy reach.
[2019-07-07] MEDS: Atorvastatin 80mg tab ORAL SCH (21:00)
[2019-07-08] VITALS: BP 125/66
--- NOTE | 2019-07-08 02:45 | Progress Note ---
DATE: 07/07/2019 SUBJECTIVE: The patient is about the same. There is no change in vision in the right eye. She did get her aspirin, had some bleeding into the right arm and some ecchymosis. She had been on aspirin for over a year ago. As far as I can tell, there is no increased bleeding when she is not on it at that time. The patient's C-reactive protein is normal as well as sedimentation rate which is 17. PHYSICAL EXAMINATION: Cranial nerves II, she has a central scotoma with peripheral vision intact. Right a.f.d. pupillary defect. Left pupil is above 6 mm. Right pupil is about 4 to 4.5 mm, both reactive to light. 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 TREATMENT: 1. The patient had antiplatelet drugs, also her blood pressure is now 112/64. The patient has not had an MRI scan yet. So, plan is to have an MRI scan of the brain. 2. Cut back on the aspirin to 162 mg. Kp Velasco MD DR: Arpita JOB#: [id number] CC: EDWIN
[2019-07-08] MEDS: Milk of Magnesia 30ml Ud ORAL PRN (03:37)
[2019-07-08 04:23] VITALS: BP 115/50
--- NOTE | 2019-07-08 04:45 | Progress Note ---
DATE: 07/07/2019 SUBJECTIVE: The patient is an 83 years old female who came with headache, uncontrolled blood pressure, decreased vision on the left side. The patient also has constipation. She has no fever or chills. PHYSICAL EXAMINATION: GENERAL: This is an elderly female, currently awake. VITAL SIGNS: Blood pressure is currently 154/90, pulse 84, respirations 18 to 24, and temperature no fever. CHEST: Bilaterally clear. CARDIOVASCULAR: Regular rhythm. ABDOMEN: Soft. Positive bowel sounds. Nontender. EXTREMITIES: No edema. ASSESSMENT: 1. Uncontrolled high blood pressure. 2. Vision loss. 3. Hypertension. 4. Hyperlipidemia. PLAN: We will currently admit on telemetry bed. Consider waiting for the neuro consult. Continue current medical treatment. Discussed with the daughter regarding . Oscar Herbert M.D. DR: DIVINE JOB#: [id number] CC:
--- NOTE | 2019-07-08 07:02 | NUR ---
HAND-OFF: Report given to JAVIER Rothman.
[2019-07-08 08:00] VITALS: BP 125/65
--- NOTE | 2019-07-08 08:19 | NUR ---
NURSE NOTES: Patient stable. Unable to fully assess due to language barrier. No s/sx of distress. RR even and unlabored on room air. Call light within reach, bed low and locked, side rails upx2. Will continue to monitor.
[2019-07-08] MEDS ORDERED: Gadavist 7.5mMol/7.5ml vial IV PRN ×2 (08:45→09:00)
[2019-07-08] MEDS ORDERED: Aspirin EC 81mg tab ORAL SCH (09:00)
[2019-07-08] MEDS: HydrALAZINE 50mg tab ORAL SCH ×2 (09:00→17:48)
[2019-07-08] MEDS: Vitamin D 1000 IU Tab ORAL SCH (09:04)
[2019-07-08] MEDS: Aspirin Baby 81mg NG SCH (09:04)
[2019-07-08] MEDS: Tums 500mg ORAL SCH (09:05)
[2019-07-08 12:00] VITALS: BP 153/81
--- NOTE | 2019-07-08 12:20 | Cardiac Electrophysiology PN ---
Assessment/Plan Assessment/Plan 1. Accelerated hypertension. Better on Hydralazine 50 mg b.i.d. and Avapro 300 mg daily and p.r.n. clonidine. 2. Abdominal pain. The patient is an 83-year-old with high a pulsating abdominal mass. CT angio of the abdomen and chest showed No evidence of thoracic or abdominal aortic aneurysm or dissection 3. Hypernatremia and azotemia, likely due to dehydration. 4. History of abdominal mass, status post resection. 5. History of CVA.MRI brain pending DW daughter Subjective Subjective Feeling better. Just had MRI and MRA brain. No CP or SOB. Daughter at bedside Objective Last 24 Hour Vital Signs Date Time Temp Pulse Resp B/P (MAP) Pulse Ox O2 Delivery O2 Flow Rate FiO2 07/08/19 09:03 125/65 07/08/19 09:00 125/65 07/08/19 09:00 Room Air 07/08/19 08:00 96.7 60 18 125/65 (85) 100 07/08/19 04:23 97.0 58 17 115/50 (71) 97 07/08/19 04:00 53 07/08/19 00:00 60 07/08/19 00:00 97.0 63 17 125/66 (85) 98 07/07/19 21:00 Room Air 07/07/19 20:00 97.0 66 18 128/62 (84) 98 07/07/19 20:00 69 07/07/19 18:00 112/64 07/07/19 16:00 73 07/07/19 16:00 96.8 80 18 112/64 (80) 100 07/07/19 14:00 65 Intake and Output 07/07/19 07/08/19 19:00 07:00 Intake Total 140 ml 280 ml Output Total 1900 ml Balance -1760 ml 280 ml Intake Oral 140 ml 280 ml Output Urine Total 1900 ml # Voids 3 6 # Bowel Movements 1 Microbiology Date/Time Source Procedure Growth Status 07/05/19 19:23 Rectum - Final NO CARBAPENEM-RESISTANT ENTEROBACTERI... Complete 07/05/19 19:23 Rectum VRE Culture - Final NO VANCOMYCIN RESISTANT ENTEROCOCCUS ... Complete Objective HEAD AND NECK: No JVD. LUNGS: Clear. CARDIOVASCULAR: Regular S1 and S2 with no gallop or murmur. ABDOMEN: Pulsating aorta in the abdomen and a scar of previous surgery. EXT: No edema Compa Bains MD Jul 08, 2019 12:20
--- NOTE | 2019-07-08 12:40 | NUR ---
MRI BRAIN W/WO, MRA BRAIN AND MRA NECK WITH COMPLETED.
--- NOTE | 2019-07-08 14:31 | Diagnostic Imaging Report ---
Indication: Vision loss Technique: sagittal T1 fast spin echo, axial T1 and T2 FLAIR PROPELLER, axial T2 FS PROPELLER, T2* GRE, axial diffusion weighted images, thin slice axial T1 FSE, thin slice axial and coronal fat-saturated T2 FSE, post contrast axial and coronal T1 FLAIR and thin slice T1 FLAIR images. ADC and exponential ADC maps generated Comparison: Findings: . No abnormal areas of restricted diffusion to suggest acute infarction. No acute hemorrhage or edema. No mass effect nor midline shift. No abnormal contrast enhancement. There is age-related enlargement of the ventricles and extra axial CSF spaces. There is minimal periventricular confluent and punctate high T2 signal, consistent with chronic microvascular ischemic changes. Visualized orbits and sinuses are unremarkable.. The vascular flow voids are preserved Sequences dedicated to the orbits demonstrate asymmetric appearance of the optic nerves, manifested by greater fluid in the optic nerve sheath on the right as compared to the left. On the coronal images, there appears to be relatively increased central optic nerve signal on the right, as compared to the left. However, no T1 signal abnormality is demonstrated on the thin slice images, and optic nerves and sheaths appear symmetric on the postcontrast images. There is actually suggestion of patchy enhancement of the left optic nerve on the thick slice axial postcontrast brain images, but this is not corroborated on the thin slice images it is likely due to volume averaging artifact. No diffusion abnormality relatable to the optic nerves is demonstrated on the diffusion weighted images. No abnormality of the optic globe is noted other than evidence of prior cataract surgery on the right. No evidence of sellar or suprasellar mass or abnormality of the optic chiasm.. Impression: Chronic and age-related changes, including cerebral volume loss and periventricular deep white matter chronic ischemic changes Asymmetric appearance to the optic nerves and root sheaths, with slightly greater fluid surrounding the right optic nerve and equivocal increased optic nerve T2 signal on the coronal T2 sequences. This is a nonspecific finding. Classic findings of either optic neuritis or ischemic optic neuropathy are not demonstrated, however Negative for acute intracranial bleed, mass effect, infarct, or contrast enhancing lesion.
--- NOTE | 2019-07-08 14:36 | Diagnostic Imaging Report ---
Indications: Right eye vision loss Technique: 3D [id number] images obtained through the deering of Shahid. MIP reconstructions were generated in multiple rotational projections Comparison: none Findings: Patent symmetric and nonstenotic bilateral distal internal carotid arteries are demonstrated. Patent bilateral A1 segments. Diffusely smaller caliber left A1 segment, with patent anterior communicating artery. Proximal anterior cerebral artery branches are patent and nonstenotic. Patent nonstenotic bilateral M1 segments, and proximal branches. Weak flow signal is seen in the ophthalmic arteries bilaterally, but they appear to be symmetric, and limited signal is probably due to the horizontal inflamed nature of the flow and the small size of these vessels. Patent nonstenotic bilateral codominant vertebral arteries. Patent nonstenotic basilar artery and branches. Patent nonstenotic bilateral P1 segments and proximal posterior cerebral arteries. There are patent bilateral posterior communicating arteries. That on the left is larger than the P1 segment and is a dominant supply to the left posterior cerebral artery. Proximal posterior cerebral artery branches are patent. Impression: Poorly visualized but probably patent bilateral common arteries. No evidence of proximal cerebrovascular insufficiency. Sherman of Shahid anatomy as described
--- NOTE | 2019-07-08 14:47 | Diagnostic Imaging Report ---
. Indication: Right vision loss Technique: 3 plane 2-D [id number] axial GRE images obtained through the neck. Subsequently, with IV injection of contrast, coronal multiphasic TRICKS images were obtained. Subtracted images were obtained and MIP reconstructions were generated. Comparison: none Findings: Normal aortic arch anatomy. Patent nonstenotic right brachiocephalic, bilateral proximal subclavian, bilateral common and internal carotid arteries, bilateral vertebral arteries. Vertebral arteries are codominant. Impression: Negative for evidence of significant extracranial cerebrovascular insufficiency
[2019-07-08 16:00] VITALS: BP 142/72
--- NOTE | 2019-07-08 17:15 | NUR ---
CASE MANAGEMENT:REVIEW 07/08/19 SI: ACCELERATED HTN. VISION LOSS CT HEAD(-) MRI(+) CHRONIC/AGE RELATED CHANGES 97.7 58 20 142/72 96% ON RA IS: ASA PO QD HYDRALAZINE PO BID AVAPRO PO QD : TELEMETRY STATUS DCP: FROM HOME
[2019-07-08] MEDS: Brimonidine 0.2% Opth Sol BOTH EYES SCH (17:48)
[2019-07-08] MEDS: Timolol 0.5% Op Soln 2.5ml BOTH EYES SCH (17:48)
--- NOTE | 2019-07-08 18:00 | Progress Note ---
DATE: 07/08/2019 SUBJECTIVE: The patient has not seen the theatrical performer yet. Hopefully, the patient will get an Ophthalmology consult too. The patient's vision in the right eye is about the same. There is very little visual acuity. She probably sees light in the right eye. PHYSICAL EXAMINATION: VITAL SIGNS: Temperature is 97 degrees, pulse is 58 and regular, blood pressure is 115/50, respiratory rate is 17. CRANIAL NERVE EXAMINATION: CRANIAL NERVE II: There is a right inferior pupillary defect sluggish to very little light reaction . There is a central scotoma with probably some peripheral vision at least in the temporal dean to shaking hand on the right. Visual dean on the left are normal. CRANIAL NERVES III, IV, AND : Extraocular motility is full. Left pupil light reaction is intact at 7 mm. Right pupil is about 5 mm. IMPRESSION: Probable right inferior ischemic optic neuropathy without active optic neuritis from MS or temporal arteritis. The MRI scan of the brain should be done today and MRA of the neck should be done. PLAN: 1. As above. 2. Please get ophthalmologic consultation. Kp Velasco MD DR: TERRI JOB#: [id number] CC:
--- NOTE | 2019-07-08 19:39 | NUR ---
HAND-OFF: Report given to Miranda Pepe RN. Patient stable. Plan of care endorsed.
--- NOTE | 2019-07-08 19:39 | NUR ---
NURSE NOTES: Received patient from JAVIER Holman, patient in stable condition, Israeli speaking, daughter at bedside, AOx3, denies pain, IV on right FA, asymptomatic, patent, patient ambulatory, bed low&locked, side rails upx3, call light within reach, will continue to monitor and reassess
[2019-07-08 20:00] VITALS: BP 106/64
[2019-07-08] MEDS: Atorvastatin 80mg tab ORAL SCH (21:48)
[2019-07-09] VITALS (7 sets, daily range): BP systolic 75–134; BP diastolic 47–80
--- NOTE | 2019-07-09 07:21 | NUR ---
HAND-OFF: Report given to JAVIER Holman,patient in stable condition, plan of care endorsed.
--- NOTE | 2019-07-09 07:37 | NUR ---
NURSE NOTES: Patient stable alert. No compaints and no s/sx of distress. RR even and unlabored on RA. Side rails upx2, call light within reach, bed low and locked. Will continue to monitor.
[2019-07-09] MEDS: Timolol 0.5% Op Soln 2.5ml BOTH EYES SCH ×2 (08:49→17:22)
[2019-07-09] MEDS: Vitamin D 1000 IU Tab ORAL SCH (08:49)
[2019-07-09] MEDS: Brimonidine 0.2% Opth Sol BOTH EYES SCH ×2 (08:49→17:22)
[2019-07-09] MEDS: HydrALAZINE 50mg tab ORAL SCH ×2 (08:50→17:22)
[2019-07-09] MEDS: Tums 500mg ORAL SCH (08:50)
[2019-07-09] MEDS: Aspirin Baby 81mg NG SCH (08:50)
--- NOTE | 2019-07-09 14:47 | Cardiac Electrophysiology PN ---
Assessment/Plan Assessment/Plan 1. Accelerated hypertension. Better on Hydralazine 50 mg b.i.d., Avapro 300 mg daily and p.r.n. clonidine. 2. Abdominal pain. The patient is an 83-year-old with high a pulsating abdominal mass. CT angio of the abdomen and chest showed No evidence of thoracic or abdominal aortic aneurysm or dissection 3. Hypernatremia and azotemia, likely due to dehydration. 4. History of abdominal mass, status post resection. 5. History of CVA. DW daughter and RN DC planning today Subjective Subjective Feeling better. Had MRI and MRA brain. No CP or SOB. Daughter at bedside. DC home pending Objective Last 24 Hour Vital Signs Date Time Temp Pulse Resp B/P (MAP) Pulse Ox O2 Delivery O2 Flow Rate FiO2 07/09/19 12:00 97.9 49 20 119/57 (77) 100 07/09/19 09:00 Room Air 07/09/19 08:50 134/59 07/09/19 08:50 134/59 07/09/19 08:00 98.1 56 18 134/59 (84) 99 07/09/19 07:47 71 07/09/19 04:00 46 07/09/19 04:00 97.0 65 16 116/80 (92) 99 07/09/19 00:10 97.5 69 20 110/79 (89) 98 07/09/19 00:00 47 07/08/19 21:00 Room Air 07/08/19 20:00 66 07/08/19 20:00 97.0 59 20 106/64 (78) 99 07/08/19 17:48 142/72 07/08/19 16:00 66 07/08/19 16:00 97.7 58 20 142/72 (95) 96 Intake and Output 07/08/19 07/09/19 19:00 07:00 Intake Total 140 ml Output Total 1400 ml 2 ml Balance -1260 ml -2 ml Intake Oral 140 ml Output Urine Total 1400 ml 2 ml # Voids 3 Objective HEAD AND NECK: No JVD. LUNGS: Clear. CARDIOVASCULAR: Regular S1 and S2 with no gallop or murmur. ABDOMEN: Pulsating aorta in the abdomen and a scar of previous surgery. EXT: No edema Compa Bains MD Jul 09, 2019 14:47
--- NOTE | 2019-07-09 15:30 | NUR ---
NURSE NOTES: Patient's daughter requesting paperwork for work to be signed. Also wants confidential paper stating admission date and discharge. Requesting prescriptions for her new medications. Dr. Herbert aware and stated to hold discharge for now. Will endorse.
--- NOTE | 2019-07-09 19:16 | NUR ---
HAND-OFF: Report given to Gudelia HERRERA. Patient stable. Plan of care endorsed.
--- NOTE | 2019-07-09 19:39 | NUR ---
NURSE NOTES: Received patient from JAVIER Holman, patient in stable condition, [place] speaking, AOx3, denies pain, IV on right FA, asymptomatic, patent, patient ambulatory, bed low&locked, side rails upx3, call light within reach, patient to be transferred to , will continue to monitor and reassess Addendum: 07/09/19 at 3 by RIGOBERTO PAVON RN NURSE NOTES: No IV access. I spoke with the daughter last night and she requested the IV is taken out today. I explained the patient will need an IV access for medications but the daughter believed IV caused formation of thrombus in the past. Per JAVIER Holman, patient and her daughter requested the IV to be removed. We will try to get access again , will continue to monitor and reassess
[2019-07-09] MEDS: Atorvastatin 80mg tab ORAL SCH (20:44)
--- NOTE | 2019-07-09 21:30 | Progress Note ---
DATE: 07/09/2019 SUBJECTIVE: The patient is an elderly 83-year-old white female who came to the emergency room for chest pain, uncontrolled blood pressure, and decreased vision. The patient was further worked up. CT scan was negative. Neurology consult was obtained. Ophthalmology consult was also obtained. The patient's eye problem not related with that. This time, the patient possibly had cataract and recommended followup as outpatient with Ophthalmology. The patient also added hydralazine, had a stress test. Cardiology consult was obtained. The patient is physically doing better. She is going to go home on discharge. PHYSICAL EXAMINATION: VITAL SIGNS: Blood pressure 134/59, pulse 56, and no fever. CHEST: Bilaterally clear. CARDIOVASCULAR: Regular rhythm. ABDOMEN: Soft. EXTREMITIES: No edema. GENITOURINARY: Deferred. LABORATORY AND DIAGNOSTIC DATA: Her labs so far unremarkable. ASSESSMENT: 1. Uncontrolled blood pressure. 2. Acute coronary syndrome. 3. Left eye decreased vision. DIET: She is on 2 grams sodium diet. ACTIVITY: The patient is able to walk with a walker. The patient is going to go home with home health. Activity as tolerated. DISCHARGE MEDICATIONS: See the list. The patient was also given prescription for home health and for the daughter for her followup. Oscar Herbert M.D. DR: [place] JOB#: [id number] CC:
[2019-07-10] VITALS: BP 121/61
[2019-07-10 04:13] VITALS: BP 126/63
--- NOTE | 2019-07-10 07:10 | NUR ---
HAND-OFF: Report given to JAVIER Terrell, patient in stable condition, plan of care endorsed.
[2019-07-10 08:00] VITALS: BP 145/86
[2019-07-10] MEDS: Aspirin Baby 81mg NG SCH (08:45)
[2019-07-10] MEDS: Vitamin D 1000 IU Tab ORAL SCH (08:47)
[2019-07-10 08:48] VITALS: BP 145/86
[2019-07-10] MEDS: HydrALAZINE 50mg tab ORAL SCH (08:48)
[2019-07-10] MEDS: Tums 500mg ORAL SCH (08:49)
[2019-07-10] MEDS: Timolol 0.5% Op Soln 2.5ml BOTH EYES SCH (08:56)
[2019-07-10] MEDS: Brimonidine 0.2% Opth Sol BOTH EYES SCH (08:57)
--- NOTE | 2019-07-10 11:00 | NUR ---
NURSE NOTES: Patient discharged. All belongings with patient including dentures and glasses. IV d/ch and taken off heart monitor. Discharge paperwork reviewed with patient and daughter. New prescriptions given and explained to take blood pressure prior to medication administration and to hold if blood pressure is low. Side effects reviewed with all medications. Patient and daughter verbalized understanding. Forms for daughter's work signed and not given stating patient's admission dates. Patient walked down via wheelchair to private vehicle.
--- NOTE | 2019-07-10 23:00 | Discharge Summary ---
DATE OF ADMISSION: 07/05/2019 DATE OF DISCHARGE: 07/10/2019 HOSPITAL COURSE: This is an 83-year-old female, who came to the emergency room for having uncontrolled blood pressure and also having headache and chest pain. The patient was admitted on telemetry bed. She was assessed by Cardiology. Cardiac workup was negative. The patient added hydralazine. The patient also has vision problem, decreased vision on the left eye. Ophthalmology consult was also obtained and neurology consult was also obtained further assessment outpatient. The patient did not require any other intervention this time. The patient is physically doing better. Last night, the patient has bradycardia, but asymptomatic. Her heart rate was 55. The patient is not on beta phyllis. Discussed with the daughter, who is going to take her home. PHYSICAL EXAMINATION: VITAL SIGNS: Blood pressure is currently 145/86 and pulse 55. No fever. CHEST: Bilaterally clear. CARDIOVASCULAR: ____ rhythm. ABDOMEN: Soft. EXTREMITIES: No edema. GENITOURINARY: Deferred. LABORATORY AND DIAGNOSTIC DATA: The patient has no labs today. Her labs are unremarkable. ASSESSMENT AND PLAN: Uncontrolled blood pressure. The patient on Avapro. The patient was added on hydralazine, hold if blood pressure less than 110/70. Care discussed with daughter. Discontinued clonidine. Degenerative arthritis, the patient is walking with walker. Continued eyedrops. Follow up as outpatient with Ophthalmology and PCP in one week. Home health was assigned. They are going to see her in home. Discussed with charge nurse and daughter, who was on bedside and also get the letter to the daughter for her work as well as for ____. DIET: She is on 2 grams sodium diet. ACTIVITY: The patient is walking with walker and going to bathroom herself. MEDICATIONS: Discharge medications, see the prescription. Oscar Herbert M.D. DR: [place] JOB#: [id number] CC:
== END 2019-07-10 11:00 | disposition home or self-care (01) | DRG 305 ==
LOC: EDBD 17:32 → EMR 18:53 → 2E 19:12 → EDBEDREQ 20:28
DX: I16.0 Hypertensive urgency (principal); E87.0 Hyperosmolality and hypernatremia; I10 Essential (primary) hypertension; E78.5 Hyperlipidemia, unspecified; R00.1 Bradycardia, unspecified; R10.9 Unspecified abdominal pain; M19.90 Unspecified osteoarthritis, unspecified site; Z86.73 Personal history of transient ischemic attack (TIA), and cerebral infarction without residual deficits; E86.0 Dehydration; M81.0 Age-related osteoporosis without current pathological fracture; R73.03 Prediabetes; H91.93 Unspecified hearing loss, bilateral; H47.011 Ischemic optic neuropathy, right eye
CPT/HCPCS: 36415; 70450; 70544; 70548; 70553; 71275; 74174; 80053; 80061; 81003; 82962; 83880; 84484; 85025; 85610; 85651; 85730; 86140; 87081; 93005; 93306; 99285; A9585